=== PATIENT | female | born 1940 | race Caucasian/White ===

== ENCOUNTER 2017-03-26 10:24 | Outpatient (CLI) | payer OTHER ==
[~2017-03-26 10:24] MED LIST: ASA81 MG PO; CATAFLAM50 MG; DIOVAN160 M1 PO; GILTUSS TR TAB1 EACH PO; TROPOL; ZITHROMAX TRI-500 MG PO; ZOCOR5 MG PO; ZYRTEC10 MG PO
== END 2017-03-26 15:10 | disposition home or self-care (01) ==
LOC: RAD 501 10:24
DX: M25.562 Pain in left knee (principal)

== ENCOUNTER 2018-07-14 18:46 | Emergency (ER) | payer OTHER ==
[~2018-07-14] VITALS: Ht 152.4 cm; Wt 76.2 kg
[2018-07-14] MEDS ORDERED: ELIQUIS2.5 MG (19:10)
== END 2018-07-14 21:52 | disposition home or self-care (01) ==
LOC: ER 18:46
DX: S00.83XA Contusion of other part of head, initial encounter (principal); W18.09XA Striking against other object with subsequent fall, initial encounter; Y93.89 Activity, other specified; Y92.22 Religious institution as the place of occurrence of the external cause; Y99.8 Other external cause status

== ENCOUNTER 2021-02-21 14:47 | Emergency (ER) | payer OTHER ==
[~2021-02-21] VITALS: Ht 152.4 cm; Wt 78.0 kg
[~2021-02-21 14:47] MED LIST changes: +ELIQUIS2.5 MG
[2021-02-21] MEDS ORDERED: DUI500 PO (16:35)
== END 2021-02-21 16:38 | disposition home or self-care (01) ==
LOC: ER 14:47
DX: S50.871A Other superficial bite of right forearm, initial encounter (principal); S00.87XA Other superficial bite of other part of head, initial encounter; S20.371A Other superficial bite of right front wall of thorax, initial encounter; L08.9 Local infection of the skin and subcutaneous tissue, unspecified; W57.XXXA Bitten or stung by nonvenomous insect and other nonvenomous arthropods, initial encounter; Y93.89 Activity, other specified; Y92.89 Other specified places as the place of occurrence of the external cause; Y99.8 Other external cause status

== ENCOUNTER 2021-03-08 14:34 | Emergency (ER) | payer OTHER ==
[~2021-03-08] VITALS: Ht 152.4 cm; Wt 78.9 kg
[~2021-03-08 14:34] MED LIST changes: +DUI500 PO
[2021-03-08] MEDS ORDERED: LOSARTAN POTASS50 MG (14:48)
== END 2021-03-08 17:43 | disposition home or self-care (01) ==
LOC: ER 14:34
DX: S00.531A Contusion of lip, initial encounter (principal); W01.198A Fall on same level from slipping, tripping and stumbling with subsequent striking against other object, initial encounter; Y93.01 Activity, walking, marching and hiking; Y92.89 Other specified places as the place of occurrence of the external cause; Y99.8 Other external cause status

== ENCOUNTER 2021-05-18 11:37 | Outpatient (CLI) | payer OTHER ==
[~2021-05-18 11:37] MED LIST changes: +LOSARTAN POTASS50 MG
== END 2021-05-18 11:39 | disposition home or self-care (01) ==
LOC: RAD 11:37
PROVIDERS: ATTEND Physical Medicine & Rehabilitation
DX: M54.6 Pain in thoracic spine (principal); M54.2 Cervicalgia

== ENCOUNTER 2021-05-31 11:36 | Emergency (ER) | payer OTHER ==
[~2021-05-31] VITALS: Ht 152.4 cm; Wt 72.6 kg
[2021-05-31] MEDS ORDERED: LOPRESSOR25 MG PO (11:53)
[2021-05-31] MEDS ORDERED: TYLENOL ARTHRI650 MG PO (11:54)
== END 2021-05-31 12:12 | disposition home or self-care (01) ==
LOC: ER 11:36
DX: M54.50 Low back pain, unspecified (principal); Z85.79 Personal history of other malignant neoplasms of lymphoid, hematopoietic and related tissues

== ENCOUNTER 2021-06-02 22:37 | Emergency (ER) | payer OTHER ==
[~2021-06-02] VITALS: Ht 152.4 cm; Wt 72.6 kg
[~2021-06-02 22:37] MED LIST changes: +LOPRESSOR25 MG PO; +TYLENOL ARTHRI650 MG PO
[2021-06-02] MEDS ORDERED: SKELAGESIC PO (23:57)
[2021-06-02] MEDS ORDERED: ORPHENADRINE C100 MG PO (23:57)
[2021-06-02] MEDS ORDERED: CELEBREX100 MG PO (23:57)
== END 2021-06-03 00:06 ==
LOC: ER 22:37
DX: M62.830 Muscle spasm of back (principal); M54.59 Other low back pain; I10 Essential (primary) hypertension

== ENCOUNTER 2021-06-07 16:05 | Emergency (ER) | payer OTHER ==
[~2021-06-07] VITALS: Ht 157.5 cm; Wt 81.6 kg
[~2021-06-07 16:05] MED LIST changes: +CELEBREX100 MG PO; +ORPHENADRINE C100 MG PO; +SKELAGESIC PO
== END 2021-06-08 14:01 | disposition home or self-care (01) ==
LOC: ER 16:05
DX: M79.605 Pain in left leg (principal)